=== PATIENT | female | born 1945 | race Caucasian/White ===

== ENCOUNTER 2018-02-21 19:09 | Inpatient (IN) | payer MEDICAID ==
[~2018-02-21] VITALS: Ht 160 cm; Wt 59.0 kg
[2018-02-21 19:19] VITALS: Ht 160 cm; Wt 59.0 kg
[2018-02-21 21:05] LABS: BASOPHIL % 0.3 % (0-2); PLATELET COUNT 219 x10^3mcL (130-400)
[2018-02-21 21:44] LABS: CALCIUM 8.8 mg/dL (8.5-10.1); CARBON DIOXIDE 28.9 mmol/L (21-32); CHLORIDE SERUM 102 mmol/L (98-107); CREATININE SERUM 0.6 mg/dL (0.6-1.0); GLUCOSE SERUM 103 mg/dL (74-106); POTASSIUM SERUM 3.6 mmol/L (3.5-5.1); SODIUM SERUM 140 mmol/L (136-145)
[2018-02-21 21:48] LABS: ALBUMIN 3.6 g/dL (3.4-5.0); ALKALINE PHOSPHATASE 117 U/L (46-116); ALT/SGPT 26 U/L (14-59); AST/SGOT 30 U/L (15-37); BILIRUBIN TOTAL 0.5 mg/dL (0.20-1.00); LIPASE 257 IU/L (73-393); TOTAL PROTEIN, SERUM 7.8 g/dL (6.4-8.2)
[2018-02-21] MEDS ORDERED: LOSARTAN POTASS50 M1 PO (21:53)
[2018-02-21] MEDS ORDERED: PRILOSEC OTC20 M1 PO (21:53)
[2018-02-21] MEDS ORDERED: LEVO-T100 MCG PO (21:55)
[2018-02-21 22:51] LABS: CHOLESTEROL/HDL RATIO 3.5; MAGNESIUM 1.8 mg/dL (1.8-2.4); PHOSPHOROUS 4.6 mg/dL (2.5-4.9)
[2018-02-21 23:00] VITALS: BP 150/70
[2018-02-21 23:15] LABS: FREE T4 1.26 ng/dL (0.76-1.46); FREE THYROXINE INDEX 3.9 ug/dL (1.4-4.5); T4(THYROXINE) 11.6 ug/dL (4.7-13.3)
[2018-02-21 23:25] VITALS: BP 165/86
[2018-02-22 00:12] LABS: T3 TOTAL 1.21 ng/mL
[2018-02-22 01:28] LABS: microscopic required? YES; urine erythrocyte NEGATIVE (NEGATIVE)
[2018-02-22 01:37] LABS: AMPHETAMINE QUAL UR NONE DETECTED (See below)
[2018-02-22 05:48] VITALS: BP 147/76
[2018-02-22 07:08] LABS: CALCIUM 7.9 mg/dL (8.5-10.1); CARBON DIOXIDE 30.9 mmol/L (21-32); CREATININE SERUM 0.5 mg/dL (0.6-1.0); GLUCOSE SERUM 94 mg/dL (74-106)
[2018-02-22 07:17] LABS: BASOPHIL % 0.3 % (0-2); PLATELET COUNT 193 x10^3mcL (130-400); RED CELL DISTRIBUTION WIDTH 13.3 % (11.5-14.5)
[2018-02-22 07:30] LABS: CHLORIDE SERUM 106 mmol/L (98-107); POTASSIUM SERUM 3.5 mmol/L (3.5-5.1); SODIUM SERUM 142 mmol/L (136-145)
[2018-02-22 09:00] VITALS: BP 136/79
[2018-02-22 17:08] VITALS: BP 136/74
[2018-02-22 20:49] VITALS: BP 143/79
[2018-02-23 05:21] VITALS: BP 118/65
[2018-02-23 06:16] LABS: BASOPHIL % 0.2 % (0-2); PLATELET COUNT 190 x10^3mcL (130-400); RED CELL DISTRIBUTION WIDTH 13.2 % (11.5-14.5)
[2018-02-23 06:38] LABS: CALCIUM 8.3 mg/dL (8.5-10.1); CARBON DIOXIDE 28.3 mmol/L (21-32); CHLORIDE SERUM 104 mmol/L (98-107); CREATININE SERUM 0.6 mg/dL (0.6-1.0); GLUCOSE SERUM 94 mg/dL (74-106); POTASSIUM SERUM 3.8 mmol/L (3.5-5.1); SODIUM SERUM 138 mmol/L (136-145)
[2018-02-23 08:41] VITALS: BP 125/70
[2018-02-23 11:27] VITALS: BP 125/70
== END 2018-02-23 12:37 | disposition home or self-care (01) | DRG 247 ==
LOC: ED 19:09 → MU 21:52
PROVIDERS: Emergency Medicine; Family Medicine
DX: K56.609 Unspecified intestinal obstruction, unspecified as to partial versus complete obstruction (principal); E03.9 Hypothyroidism, unspecified; I10 Essential (primary) hypertension; E78.5 Hyperlipidemia, unspecified; Z68.20 Body mass index [BMI] 20.0-20.9, adult
CPT/HCPCS: 83880; 84439; A9698; J2405; J3480; J7030; Q0092; Q9967